=== PATIENT | female | born 1935 | race Caucasian/White ===

== ENCOUNTER 2018-11-04 11:00 | Observation (INO) ==
--- NOTE | 2018-11-04 11:12 | Emergency Department Note ---
ED Disposition Clinical Impression: Elevated WBC count, Physical debility, Frequent falls, Degenerative joint disease of knee, left Disposition: Admitted as Observation Condition on Discharge: Fair Referrals: Provider,Eliseo, [Referring] - Time of Disposition: 14:04 - Critical Care Critical Care Time: No Attestation: On , the high probability of a clinically significant, sudden or life threatening deterioration of the following system(s) required my full and direct attention, intervention and personal management. The time I documented below is in addition to time spent performing reported procedures but includes the following listed in this critical care notation. Medical Decision Making - Medical Records Medical records reviewed: Yes: I reviewed the patient's medical records. - Saud Inquiry Pt receiving controlled substance: No Saud was queried for this patient: No Vital Signs: 11/04/18 11:00 Temperature 98.4 F Temperature Source Oral Pulse Rate [Right Apical] 69 Respiratory Rate 18 Blood Pressure [Right Arm] 113/57 L Blood Pressure Mean [Right Arm] 75 02 Sat by Pulse Oximetry 98 Oxygen Delivery Method Room Air - Lab Data Lab results reviewed: Yes: I reviewed the patient's lab results. Lab Results 11/04/18 11:02: WBC 15.5 H, RBC 4.12 L, Hgb 12.5, Hct 37.4, MCV 90.9, MCH 30.4, MCHC 33.5, RDW 13.1, Plt Count 563 H, MPV 6.5 L, Neut % (Auto) 81.7 H, Lymph % (Auto) 9.3 L, [place] % (Auto) 7.9, Eos % (Auto) 0.6, Baso % (Auto) 0.5, Neut # (Auto) 12.6 H, Lymph # (Auto) 1.4, [place] # (Auto) 1.2 H, Eos # (Auto) 0.1, Baso # (Auto) 0.1, Total Counted 100, Neutrophils % (Manual) 77 H, Lymphocytes % (Manual) 3 L, Atypical Lymphs % 3.0, Monocytes % (Manual) 16 H, Eosinophils % (Manual) 1, Platelet Estimate Slight increase, RBC Morphology Normal, ESR 82 H 11/04/18 11:02: Sodium 132 L, Potassium 3.6, Chloride 98, Carbon Dioxide 25, Anion Gap 12.6, BUN 15, Creatinine 1.02, Estimated Creat Clear 56, Estimated GFR 52 L, Est GFR ( Amer) 62, Glucose 116 H, Calcium 9.8, Total Bilirubin 0.7, AST 13 L, ALT 28, Alkaline Phosphatase 123 H, C-Reactive Protein 14.9 H, Total Protein 7.8, Albumin 2.9 L, Globulin 4.9 H, Albumin/Globulin Ratio 0.6 L 11/04/18 11:02: D-Dimer 1670 H* 11/04/18 13:10: Urine Color Yellow, Urine Appearance Clear, Urine pH 6.0, Ur Specific [place] 1.010, Urine Protein Negative, Urine Glucose (UA) Negative, Urine Ketones Negative, Urine Blood 1+, Urine Nitrate Negative, Urine Bilirubin Negative, Urine Urobilinogen 0.2, Ur Leukocyte Esterase 1+ A, Urine RBC 3-5, Urine WBC 5-10, Ur Squamous Epith Cells 10-20, Urine Bacteria 2+, Urine Mucus 1+ Result diagrams: 11/04/18 11:02 11/04/18 11:02 Orders (Tests/Meds): ED MEDICATIONS Generic Name Dose Route Start Last Admin Trade Name Frejo PRN Reason Stop Dose Admin Sodium Chloride 2 ml 11/04/18 11:39 Saline Flush 10ml Syringe IV 12/04/18 11:38 NEEDED PRN to Dilute Lorazepam inj Discontinued Medications Generic Name Dose Route Start Last Admin Trade Name Freq PRN Reason Stop Dose Admin Ketorolac Tromethamine 30 mg 11/04/18 11:12 11/04/18 11:21 Toradol 30mg/Ml Vial IV 11/04/18 11:13 30 mg ONCE ONE Administration Lorazepam 0.5 mg 11/04/18 11:39 11/04/18 11:51 Ativan 2mg/Ml Vial IV 11/04/18 11:40 0.5 mg ONCE ONE Administration Methylprednisolone Sodium Succinate 125 mg 11/04/18 11:38 11/04/18 11:51 Solu-Medrol 125mg/2ml Vial IV 11/04/18 11:39 125 mg ONCE ONE Administration Morphine Sulfate 2 mg 11/04/18 11:39 11/04/18 11:51 Morphine 2mg/Ml Syringe IV 11/04/18 11:40 2 mg ONCE ONE Administration ORDERS Category Date Time Status Blood Culture Stat Micro 11/04/18 13:56 Ordered Urine Culture Stat Micro 11/04/18 13:10 Received - Physician Consults Physician Consulted: ines Reason -: Pt condition Comment/Response: difficult social situation, elevated wbc without known cause General Adult HPI - General Chief complaint: PAIN Stated complaint: pain Time Seen by Provider: 11/04/18 11:14 Mode of Arrival: EMS Source of Information: Patient, Spouse Limitations: No Limitations - History of Present Illness HPI narrative: very upset, anxious elderly female stating she's completely disabled from zeb ateral knee pain, left greater than right. No trauma. States she's got severe arthritis but has not had her knees x-rayed to her memory. No visit to pcp for this, but it's escalating over a two weeks period. Reports feeling febrile, no thermometer at home - Related Data Home Medications Medication Instructions Recorded Confirmed diltiazem ER 180 mg capsule,24 PO 90 Days #90 02/20/18 05/16/18 hr,extended release furosemide 20 mg tablet PO 30 Days #30 02/20/18 05/16/18 lisinopril 20 mg tablet PO 30 Days #60 02/20/18 05/16/18 warfarin 5 mg tablet PO 90 Days #90 02/20/18 05/16/18 coenzyme Q10 200 mg capsule 200 mg PO DAILY 05/16/18 05/16/18 sodium hyaluronate 20 mg capsule 75 mg PO cap 05/16/18 05/16/18 Allergies Allergy/AdvReac Type Severity Reaction Status Date / Time erythromycin base Allergy Mild Verified 11/04/18 13:22 [ERYTHROMYCIN BASE] Macrolide Antibiotics Allergy Mild Verified 11/04/18 13:22 [MACROLIDE ANTIBIOTICS] Penicillins Allergy Mild Verified 11/04/18 13:22 tetracycline [TETRACYCLINE] Allergy Mild Verified 11/04/18 13:[address] [facility] History - Hepatitis A Screen Attestation statement:: This patient has been screened for Hepatitis A risk factors. I have reviewed the patient's past medical history: Yes Medical History: Reports:: Hypertension, Internal Pacemaker Other Medical History: Reports: Arthritis, Cataracts, Sinus Problems Laterality Cases: Bilateral: Tonsillectomy Other Surgeries: Yes: Hysterectomy-Total, Pacemaker, Other Amputation: No Fractures: No Comment: nose surgery, tube in her back at the age of 3 - Social History Smoking Status: Never smoker Alcohol Intake: never Alcohol Intake Frequency:: other Family Hx:: Unable to obtain ROS Obtained: Yes All systems reviewed & no additional complaints - Constitutional Constitutional: Reports chills, Reports fever(s), Reports weakness - ENT Ears, Nose, Mouth, and Throat: Denies sinus pain, Denies throat swelling - Cardiovascular Cardiovascular: Denies chest pain, Denies chest pain at rest, Denies diaphoresis, Denies dyspnea - Respiratory Respiratory: No chest congestion, No cough, No dyspnea - Gastrointestinal Gastrointestingal: Denies: abdominal pain, diarrhea, vomiting - Genitourinary Female Genitourinary: Denies dysuria, Denies flank pain - Musculoskeletal Musculoskeletal: Reports muscle weakness, Reports muscle aches, Reports stiffness - Integumentary/Breasts Skin/Breast: Denies rash, Denies skin pain - Neurologic Neurologic: Denies focal weakness, Reports frequent falls, Reports weakness Physical Exam - General General appearance: alert, anxious, in distress, other (frustrated) - Head Head exam: atraumatic, normocephalic, normal inspection - ENT ENT exam: Present: normal exam, normal oropharynx, mucous membranes moist, TM's normal bilaterally, normal external ear exam - Respiratory Respiratory exam: Present: normal lung sounds bilaterally. Absent: respiratory distress - Cardiovascular Cardiovascular exam: Present: regular rate, normal rhythm. Absent: JVD - Abdominal Exam Abdominal exam: Present: soft, normal bowel sounds. Absent: distention, tenderness, guarding - Extremities Exam Extremities exam: Present: tenderness, pedal edema, joint swelling. Absent: normal inspection, full ROM - Neurological Exam Neurological exam: Present: alert, oriented X3, CN II-XII intact - Psychiatric Psychiatric exam: Present: normal affect, normal mood - Skin Skin exam: Present: warm, dry, intact, normal color, other (skin of left lower leg is warmer to touch than R) - Lymphatic Lymphatic Findings: no adenopathy
[2018-11-04 11:21] LABS: Basophils # 0.1 K/mm3 (0-0.2); Basophils % 0.5 % (0.1-2.0); Eosinophils # 0.1 K/mm3 (0.0-0.4); Eosinophils % 0.6 % (0.1-12.0); Hematocrit 37.4 % (37.0-47.0); Hemoglobin 12.5 g/dL (12.2-16.2); Lymphocytes # 1.4 K/mm3 (0.7-4.5); Lymphocytes % 9.3 % (10-50); Mean Corpuscular HGB Conc 33.5 g/dL (31.8-35.4); Mean Corpuscular Hemoglobin 30.4 pg (27.0-31.2); Mean Corpuscular Volume 90.9 fl (81-99); Mean Platelet Volume 6.5 fl (7.4-10.4); Monocytes # 1.2 K/mm3 (0.1-1.0); Monocytes % 7.9 % (1.7-9.3); Neutrophils # 12.6 K/mm3 (1.8-7.8); Neutrophils % 81.7 % (37.0-80.0); Platelet Count 563 K/mm3 (142-424); Red Blood Count 4.12 M/mm3 (4.20-5.40); Red Cell Distribution Width 13.1 % (11.5-17.5); White Blood Count 15.5 K/mm3 (4.8-10.8)
[2018-11-04 11:29] LABS: Albumin Level 2.9 gm/dL (3.4-5.0); Albumin/Globulin Ratio 0.6 (1.1-1.8); Anion Gap 12.6 mEq/L (5-15); Bilirubin,Total 0.7 mg/dL (0.2-1.0); Calcium 9.8 mg/dL (8.5-10.1); Globulin 4.9 gm/dl (1.3-3.2); Potassium 3.6 mmoL/L (3.5-5.1); Total Protein,Serum 7.8 gm/dL (6.4-8.2)
[2018-11-04 11:36] LABS: Eosinophils % 1 % (0-3); Lymphocytes % 3 % (10-50); Monocytes % 16 % (2-9); Neutrophils % 77 % (42-76); RBC Morphology Normal; Total Cells Counted 100
[2018-11-04 11:40] LABS: C-Reactive Protein 14.9 mg/L (0.0-0.9)
[2018-11-04 12:13] LABS: Erythrocyte Sedimentation Rate 82 mm/hr (0-30)
[2018-11-04 13:18] LABS: Microscopic, Urine URINE MICROSCOPIC (MICROSCOPIC)
[2018-11-04 13:20] LABS: Appearance,Urine CLEAR (Clear); Bilirubin,Urine Negative (Negative); Blood, Urine 1+ (Negative); Color,Urine YELLOW (Yellow); Glucose,Urine (UA) Negative (Negative); Ketones,Urine Negative (Negative); Leukocyte Esterase,Urine 1+ (Negative); Protein,Urine Negative (Negative); Urobilinogen,Urine 0.2 EU/dl (0.2)
[2018-11-04 13:31] LABS: Bacteria,Urine 2+ /lpf; Mucus,Urine 1+ /lpf
--- NOTE | 2018-11-04 13:52 | Non-Invasive Vascular Report ---
"Venous Exam Indications: 729.5 Pain in limb. 782.3 Edema. IMPRESSIONS 1. There is no evidence of significant Reflux. 2. No evidence of deep or superficial vein thrombosis involving the right lower extremity and left lower extremity Complete lower extremity venous duplex evaluation. Doppler flow study including spectral analysis, color and doherty scale imaging. Patient status: Emergency department. Tables: Venous flow and imaging: + + + + + |Location |Overall |Flow properties |Comments | + + + + + |Right common femoral|Patent |Normal phasicity; | | | | |spontaneous; normal| | | | |augmentation; | | | | |compressible | | + + + + + |Right saphenofemoral|Patent |Compressible | | |junction | | | | + + + + + |Right profunda |Patent |Compressible | | |femoral | | | | + + + + + |Right femoral |Patent |Normal phasicity; | | | | |spontaneous; normal| | | | |augmentation; | | | | |compressible; no | | | | |reflux | | + + + + + |Right greater |Patent |Normal phasicity; | | |saphenous | |spontaneous; normal| | | | |augmentation; | | | | |compressible | | + + + + + |Right popliteal |Patent |Normal phasicity; | | | | |spontaneous; normal| | | | |augmentation; | | | | |compressible | | + + + + + |Right posterior |Difficult | |Difficult to | |tibial |study | |image. | + + + + + |Right peroneal |Difficult | |Difficult to | | |study | |image. | + + + + + |Right gastrocnemius |Not visualized| | | + + + + + |Right soleal |Not visualized| | | + + + + + |Left common femoral |Patent |Normal phasicity; | | | | |spontaneous; normal| | | | |augmentation; | | | | |compressible | | + + + + + |Left saphenofemoral |Patent |Compressible | | |junction | | | | + + + + + |Left profunda |Patent |Compressible | | |femoral | | | | + + + + + |Left femoral |Patent |Normal phasicity; | | | | |spontaneous; normal| | | | |augmentation; | | | | |compressible | | + + + + + |Left greater |Patent |Normal phasicity; | | |saphenous | |spontaneous; normal| | | | |augmentation; | | | | |compressible | | + + + + + |Left popliteal |Patent |Normal phasicity; | | | | |spontaneous; normal| | | | |augmentation; | | | | |compressible | | + + + + + |Left posterior |Patent |Compressible | | |tibial | | | | + + + + + |Left peroneal |Patent |Compressible | | + + + + + |Left gastrocnemius |Patent |Compressible | | + + + + + |Left soleal |Patent |Compressible | | + + + + + (Report amended ) Electronically signed by: Elan Hernandez [id number]"
--- NOTE | 2018-11-04 14:45 | History & Physical Report ---
*Chief complaint: fever; knee pain *History of present illness: Ms. Coello is an 82-year-old female with a history of atrial fibrillation, hypertension, peripheral vascular disease, leg edema, hypothyroidism, and osteoarthritis who has had a progressive decline over the past 2 weeks. She states that she has had a fever (subjective ) and feels that she has had a sinus infection. She is gradually had difficulty with ambulation and now she states that she cannot walk although she is able to get up and stand and walk for short distances. She did have a fall 2 weeks ago but does not recall any specific injury. She did not sleep last night due to the pain Patient was evaluated in the emergency room. She was given morphine, Ketarolac, Solu-Medrol, and lorazepam. White blood cell count was found to be elevated. She was admitted to observation for further evaluation and treatment [facility] History Medical History: Reports:: Atrial Fibrillation, Hypertension, Internal Pacemaker, Peripheral Vascular Disease Denies:: Diabetes Mellitus Type 2, Gastroesophageal Reflux Disease(GERD) *Have you ever received a pneumonia vaccine?: No *Have you received a flu vaccine this season?: No Other Medical History: Reports: Arthritis, Cataracts, Sinus Problems Laterality Cases: Bilateral: Tonsillectomy Other Surgeries: Yes: Hysterectomy-Total, Pacemaker, Other Amputation: No Fractures: No - *Social History Smoking Status: Never smoker Alcohol Intake: never Alcohol Intake Frequency:: other *Occupational Status:: employed *Travel in the last 8 weeks: None - Psychiatric History Expresses thoughts of harming self/others: None Suicide Plan Description: No Plan Family Hx:: Unable to obtain Review of Systems - Constitutional Reports fatigue, Reports fever(s), Reports headache(s), Reports lack of energy, Denies body ache(s) - ENT Reports headache(s), Denies ear pain, Denies nasal congestion Comments: feels like she has a sinus infection - *Cardiovascular Reports leg swelling, Denies chest pain, Denies shortness of breath - *Respiratory Denies cough, Denies shortness of breath - *Gastrointestinal Denies abdominal pain, Denies change in bowel habits, Denies change in stools, Denies constipation, Denies vomiting blood, Denies loose stools, Denies black, tarry stools, Denies nausea, Denies vomiting - *Genitourinary Denies difficulty urinating, Denies painful urination, Denies blood in urine - *Musculoskeletal Reports abnormal walking, Reports joint pain, Reports deformity, Reports joint swelling (bilateral knees), Reports muscle weakness Comments: has only been able to walk short distances - *Neurologic Reports frequent falls, Reports weakness, Denies localized weakness Meds Home Medications Medication Instructions Recorded Confirmed Type furosemide 20 mg tablet PO 30 Days #30 02/20/18 05/16/18 History lisinopril 20 mg tablet PO 30 Days #60 02/20/18 05/16/18 History warfarin 5 mg tablet PO 90 Days #90 02/20/18 05/16/18 History coenzyme Q10 200 mg capsule 200 mg PO DAILY 05/16/18 05/16/18 History Allergies Allergy/AdvReac Type Severity Reaction Status Date / Time erythromycin base Allergy Mild Verified 11/04/18 13:22 [ERYTHROMYCIN BASE] Macrolide Antibiotics Allergy Mild Verified 11/04/18 13:22 [MACROLIDE ANTIBIOTICS] Penicillins Allergy Mild Verified 11/04/18 13:22 tetracycline [TETRACYCLINE] Allergy Mild Verified 11/04/18 13:22 Exam Vital signs and Labs for Last 24 Hours: Temp Pulse Resp BP Pulse Ox 98.4 F 69 18 113/57 L 98 11/04/18 11:00 11/04/18 11:00 11/04/18 11:00 11/04/18 11:00 11/04/18 11:00 Laboratory Results - last 24 hr 11/04/18 11:02: WBC 15.5 H, RBC 4.12 L, Hgb 12.5, Hct 37.4, MCV 90.9, MCH 30.4, MCHC 33.5, RDW 13.1, Plt Count 563 H, MPV 6.5 L, Neut % (Auto) 81.7 H, Lymph % (Auto) 9.3 L, [place] % (Auto) 7.9, Eos % (Auto) 0.6, Baso % (Auto) 0.5, Neut # (Auto) 12.6 H, Lymph # (Auto) 1.4, [place] # (Auto) 1.2 H, Eos # (Auto) 0.1, Baso # (Auto) 0.1, Total Counted 100, Neutrophils % (Manual) 77 H, Lymphocytes % (Manual) 3 L, Atypical Lymphs % 3.0, Monocytes % (Manual) 16 H, Eosinophils % (Manual) 1, Platelet Estimate Slight increase, RBC Morphology Normal, ESR 82 H 11/04/18 11:02: Sodium 132 L, Potassium 3.6, Chloride 98, Carbon Dioxide 25, Anion Gap 12.6, BUN 15, Creatinine 1.02, Estimated Creat Clear 56, Estimated GFR 52 L, Est GFR ( Amer) 62, Glucose 116 H, Calcium 9.8, Total Bilirubin 0.7, AST 13 L, ALT 28, Alkaline Phosphatase 123 H, C-Reactive Protein 14.9 H, Total Protein 7.8, Albumin 2.9 L, Globulin 4.9 H, Albumin/Globulin Ratio 0.6 L 11/04/18 11:02: D-Dimer 1670 H* 11/04/18 13:10: Urine Color Yellow, Urine Appearance Clear, Urine pH 6.0, Ur Specific [place] 1.010, Urine Protein Negative, Urine Glucose (UA) Negative, Urine Ketones Negative, Urine Blood 1+, Urine Nitrate Negative, Urine Bilirubin Negative, Urine Urobilinogen 0.2, Ur Leukocyte Esterase 1+ A, Urine RBC 3-5, Urine WBC 5-10, Ur Squamous Epith Cells 10-20, Urine Bacteria 2+, Urine Mucus 1+ I & O for Last 24 hours: Intake & Output 11/02/18 11/03/18 11/04/18 11/05/18 11:59 11:59 11:59 11:59 Weight 190 lb Radiology Reports for the Last 24 Hours: Chest x-ray 11/04/2018 IMPRESSION: Left lower lobe atelectasis or infiltrate with cardiomegaly Left knee x-ray 11/04/2018 IMPRESSION: Severe osteoarthritis of the left knee Right knee x-ray 11/04/2018 IMPRESSION: Severe osteoarthritis of the right knee as described above Venous Doppler studies of bilateral lower extremities 11/04/2018 1. There is no evidence of significant Reflux. 2. No evidence of deep or superficial vein thrombosis involving the right lower extremity and left lower extremity - Constitutional no acute distress, obese - *Routine HEENT Exam Head: Present: normocephalic, atraumatic Eye: Present: PERRL, exophthalmos. Absent: conjunctival icterus, scleral injection ENT: Present: mucous membranes moist, oropharynx clear, TM's clear bilaterally - *Routine Neck Exam Present: supple, full ROM, trachea midline. Absent: carotid bruit, lymphadenopathy, thyromegaly, tenderness - *Routine Respiratory Exam Comments: Audible crackles on the right posteriorly. Left lower base crackles. - *Routine Cardiovascular Exam Present: RRR - *Routine Abdominal Exam Present: soft, normoactive bowel sounds. Absent: tenderness, guarding Comments: Obese - *Routine Extremities Exam Present: edema (2-3+; left knee and leg larger than the right). Absent: tenderness Comments: osteoarthritic changes to bilateral knees - *Routine Neurological Exam Present: alert, oriented X3, normal speech. Absent: hearing grossly intact (Hearing deficit) Assessment and Plan (1) Degenerative joint disease of knee, left Current visit: Yes Status: Acute Category: Medical Code(s): M17.12 - U nilateral primary osteoarthritis, left knee (2) Degenerative joint disease of knee, right Current visit: Yes Status: Acute Category: Medical Code(s): M17.11 - Unilateral primary osteoarthritis, right knee (3) HTN (hypertension) Current visit: Yes Status: Chronic Category: Medical Code(s): I10 - Essential (primary) hypertension (4) History of atrial fibrillation Current visit: Yes Status: Chronic Category: Medical Code(s): Z86.79 - Personal history of other diseases of the circulatory system (5) Elevated WBC count Current visit: Yes Status: Acute Category: Medical Code(s): D72.829 - Elevated white blood cell count, unspecified (6) Frequent falls Current visit: Yes Status: Acute Category: Medical Code(s): R29.6 - Repeated falls (7) Physical debility Current visit: Yes Status: Chronic Category: Medical Code(s): R53.81 - Other malaise (8) Leg edema Current visit: Yes Status: Acute Category: Medical Code(s): R60.0 - Localized edema - Assessment and plan all Dx Assessment and Plan for all problems:: care management consult; pain management; IV Lasix; saline lock ; PO steriods; Rocephin for leukocytosis; repeat labs in AM; TSH as well
[2018-11-04 17:01] LABS: INR 4.95 (0.9-1.1); Prothrombin Time 48.7 seconds (9.4-11.8)
[2018-11-05 07:09] LABS: Basophils % 0.1 % (0.1-2.0); Eosinophils # 0.1 K/mm3 (0.0-0.4); Eosinophils % 0.5 % (0.1-12.0); Hemoglobin 11.8 g/dL (12.2-16.2); Lymphocytes # 0.7 K/mm3 (0.7-4.5); Lymphocytes % 4.8 % (10-50); Mean Corpuscular HGB Conc 33.6 g/dL (31.8-35.4); Mean Corpuscular Hemoglobin 30.5 pg (27.0-31.2); Mean Corpuscular Volume 90.6 fl (81-99); Mean Platelet Volume 7.2 fl (7.4-10.4); Monocytes # 0.7 K/mm3 (0.1-1.0); Monocytes % 5.1 % (1.7-9.3); Neutrophils # 12.5 K/mm3 (1.8-7.8); Neutrophils % 89.6 % (37.0-80.0); Platelet Count 442 K/mm3 (142-424); Red Blood Count 3.86 M/mm3 (4.20-5.40); Red Cell Distribution Width 13.1 % (11.5-17.5); White Blood Count 13.9 K/mm3 (4.8-10.8)
--- NOTE | 2018-11-05 07:18 | Pharmacy Consult Notes ---
[facility] Pharmacy VTE Monitoring - Patient Demographics Admission date: 11/04/18 Report Date: 11/05/18 Time: 07:18 Allergies/Adverse Reactions: Patient Allergies erythromycin base [ERYTHROMYCIN BASE] Allergy (Mild, Verified 11/04/18 13:22) Macrolide Antibiotics [MACROLIDE ANTIBIOTICS] Allergy (Mild, Verified 11/04/18 13:22) Penicillins Allergy (Mild, Verified 11/04/18 13:22) tetracycline [TETRACYCLINE] Allergy (Mild, Verified 11/04/18 13:22) Height: 1.52 m Weight: 78.5 kg Patient Problems: Current Active Problems (Updated 11/04/18 @ 16:20 by Ana Ortiz APRN) Elevated WBC count (Acute) Physical debility (Chronic) Frequent falls (Acute) Degenerative joint disease of knee, left (Acute) Degenerative joint disease of knee, right (Acute) HTN (hypertension) (Chronic) History of atrial fibrillation (Chronic) Leg edema (Acute) - VTE Risk Labs: VTE Related Lab Results Hgb 11.8 g/dL (12.2-16.2) L 11/05/18 06:32 Hct 35.0 % (37.0-47.0) L 11/05/18 06:32 Plt Count 442 K/mm3 (142-424) H 11/05/18 06:32 PT 48.7 seconds (9.4-11.8) H 11/04/18 16:25 INR 4.95 (0.9-1.1) H 11/04/18 16:25 BUN 15 mg/dL (7-18) 11/04/18 11:02 Creatinine 1.02 mg/dL (0.55-1.02) 11/04/18 11:02 Estimated Creat Clear 56 mL/min (50-200) 11/04/18 11:02 Was VTE Risk Assessment Performed: Yes VTE Score: 3 VTE Risk Level: Low Risk Clinical Trial Participant: No - Prophylaxis VTE Prophylaxis Ordered?: Yes Types of VTE Prophylaxis: TEDS Knee High
[2018-11-05 07:19] LABS: Anion Gap 11.7 mEq/L (5-15); Calcium 9.9 mg/dL (8.5-10.1); Potassium 3.7 mmoL/L (3.5-5.1)
--- NOTE | 2018-11-05 08:57 | Progress Note ---
Internal Medicine - PN: Subj *Date: 11/05/18 *Time: 08:51 Interval history: Patient states she feels 100% better. She has had a bath which made her feel much better. She denies shortness of breath, cough, nausea, and pain. She states her knees are better today. She ate breakfast without problems. Exam Vital signs and Labs for Last 24 Hours: Temp Pulse Resp BP Pulse Ox 97.2 F L 71 17 107/71 L 100 11/05/18 08:00 11/05/18 08:00 11/05/18 08:00 11/05/18 08:00 11/05/18 08:00 Laboratory Results - last 24 hr 11/04/18 11:02: WBC 15.5 H, RBC 4.12 L, Hgb 12.5, Hct 37.4, MCV 90.9, MCH 30.4, MCHC 33.5, RDW 13.1, Plt Count 563 H, MPV 6.5 L, Neut % (Auto) 81.7 H, Lymph % (Auto) 9.3 L, Atkinson % (Auto) 7.9, Eos % (Auto) 0.6, Baso % (Auto) 0.5, Neut # (Auto) 12.6 H, Lymph # (Auto) 1.4, Atkinson # (Auto) 1.2 H, Eos # (Auto) 0.1, Baso # (Auto) 0.1, Total Counted 100, Neutrophils % (Manual) 77 H, Lymphocytes % (Manual) 3 L, Atypical Lymphs % 3.0, Monocytes % (Manual) 16 H, Eosinophils % (Manual) 1, Platelet Estimate Slight increase, RBC Morphology Normal, ESR 82 H 11/04/18 11:02: Sodium 132 L, Potassium 3.6, Chloride 98, Carbon Dioxide 25, Anion Gap 12.6, BUN 15, Creatinine 1.02, Estimated Creat Clear 56, Estimated GFR 52 L, Est GFR ( Amer) 62, Glucose 116 H, Calcium 9.8, Total Bilirubin 0.7, AST 13 L, ALT 28, Alkaline Phosphatase 123 H, C-Reactive Protein 14.9 H, Total Protein 7.8, Albumin 2.9 L, Globulin 4.9 H, Albumin/Globulin Ratio 0.6 L 11/04/18 11:02: D-Dimer 1670 H* 11/04/18 11:02: TSH 1.86 11/04/18 11:02: Uric Acid 6.5 11/04/18 13:10: Urine Color Yellow, Urine Appearance Clear, Urine pH 6.0, Ur Specific [place] 1.010, Urine Protein Negative, Urine Glucose (UA) Negative, Urine Ketones Negative, Urine Blood 1+, Urine Nitrate Negative, Urine Bilirubin Negative, Urine Urobilinogen 0.2, Ur Leukocyte Esterase 1+ A, Urine RBC 3-5, Urine WBC 5-10, Ur Squamous Epith Cells 10-20, Urine Bacteria 2+, Urine Mucus 1+ 11/04/18 16:25: PT 48.7 H, INR 4.95 H 11/05/18 06:32: WBC 13.9 H, RBC 3.86 L, Hgb 11.8 L, Hct 35.0 L, MCV 90.6, MCH 30.5, MCHC 33.6, RDW 13.1, Plt Count 442 H, MPV 7.2 L, Neut % (Auto) 89.6 H, Lymph % (Auto) 4.8 L, Atkinson % (Auto) 5.1, Eos % (Auto) 0.5, Baso % (Auto) 0.1, Neut # (Auto) 12.5 H, Lymph # (Auto) 0.7, Atkinson # (Auto) 0.7, Eos # (Auto) 0.1, Baso # (Auto) 0.0 11/05/18 06:32: Sodium 134 L, Potassium 3.7, Chloride 102, Carbon Dioxide 24, An ion Gap 11.7, BUN 20 H D, Creatinine 0.88, Estimated Creat Clear 52, Estimated GFR 61, Est GFR ( Amer) 74, Glucose 189 H D, Calcium 9.9 I & O for Last 24 hours: Intake & Output 11/02/18 11/03/18 11/04/18 11/05/18 11:59 11:59 11:59 11:59 Intake Total 600 / 600 Output Total 550 / 550 Balance 50 / 50 Weight 190 lb 173 lb 1 oz - Constitutional no acute distress - *Routine Respiratory Exam Comments: Very few faint bibasilar crackles - *Routine Cardiovascular Exam Present: RRR - *Routine Abdominal Exam Present: soft, normoactive bowel sounds. Absent: tenderness - *Routine Extremities Exam Present: edema (Much improved). Absent: calf tenderness - *Routine Neurological Exam Present: alert, oriented X3 Assessment and Plan (1) Degenerative joint disease of knee, left Current visit: Yes Status: Acute Category: Medical Code(s): M17.12 - Unilateral primary osteoarthritis, left knee (2) Degenerative joint disease of knee, right Current visit: Yes Status: Acute Category: Medical Code(s): M17.11 - Unilateral primary osteoarthritis, right knee (3) HTN (hypertension) Current visit: Yes Status: Chronic Category: Medical Code(s): I10 - Essential (primary) hypertension (4) History of atrial fibrillation Current visit: Yes Status: Chronic Category: Medical Code(s): Z86.79 - Personal history of other diseases of the circulatory system (5) Elevated WBC count Current visit: Yes Status: Acute Category: Medical Code(s): D72.829 - Elevated white blood cell count, unspecified (6) Frequent falls Current visit: Yes Status: Acute Category: Medical Code(s): R29.6 - Repeated falls (7) Physical debility Current visit: Yes Status: Chronic Category: Medical Code(s): R53.81 - Other malaise (8) Leg edema Current visit: Yes Status: Acute Category: Medical Code(s): R60.0 - Localized edema - Assessment and plan all Dx Assessment and Plan for all problems:: We will decrease prednisone to 20 mg daily. Will increase Lasix to 40 mg p.o. daily. Physical therapy has been consulted. Care management note reviewed.
[2018-11-05 09:43] LABS: Lymphocytes % 3 % (10-50); Monocytes % 4 % (2-9); Neutrophils % 89 % (42-76); Total Cells Counted 100
[2018-11-05 09:44] LABS: RBC Morphology Normal
[2018-11-06 08:16] LABS: Basophils % 0.1 % (0.1-2.0); Eosinophils # 0.1 K/mm3 (0.0-0.4); Eosinophils % 0.3 % (0.1-12.0); Hematocrit 36.7 % (37.0-47.0); Hemoglobin 12.2 g/dL (12.2-16.2); Lymphocytes # 1.3 K/mm3 (0.7-4.5); Lymphocytes % 6.7 % (10-50); Mean Corpuscular HGB Conc 33.1 g/dL (31.8-35.4); Mean Corpuscular Hemoglobin 30.4 pg (27.0-31.2); Mean Corpuscular Volume 91.9 fl (81-99); Mean Platelet Volume 6.7 fl (7.4-10.4); Monocytes # 1.1 K/mm3 (0.1-1.0); Monocytes % 5.3 % (1.7-9.3); Neutrophils # 17.3 K/mm3 (1.8-7.8); Neutrophils % 87.4 % (37.0-80.0); Platelet Count 493 K/mm3 (142-424); White Blood Count 19.8 K/mm3 (4.8-10.8)
[2018-11-06 08:18] LABS: Anion Gap 9.6 mEq/L (5-15); Calcium 9.9 mg/dL (8.5-10.1); Potassium 3.6 mmoL/L (3.5-5.1)
--- NOTE | 2018-11-06 08:39 | Progress Note ---
Internal Medicine - PN: Subj *Date: 11/06/18 *Time: 08:35 Interval history: Did not sleep as well. She states her knees are better. She worked with physical therapy yesterday. She was able to get up to the bedside commode with assistance. She feels this went well. She is eating and drinking well. She is voiding QS. Bowels have not moved. She denies chest pain, shortness of breath, cough, and stomach problems. Exam Vital signs and Labs for Last 24 Hours: Temp Pulse Resp BP Pulse Ox 97.5 F L 70 20 170/79 H 94 L 11/06/18 04:00 11/06/18 04:00 11/06/18 04:00 11/06/18 04:00 11/06/18 04:00 Laboratory Results - last 24 hr 11/05/18 06:32: Total Counted 100, Neutrophils % (Manual) 89 H, Band Neutrophils % 4.0, Lymphocytes % (Manual) 3 L, Monocytes % (Manual) 4, Platelet Estimate Slight increase, RBC Morphology Normal 11/06/18 07:39: WBC 19.8 H D, RBC 4.00 L, Hgb 12.2, Hct 36.7 L, MCV 91.9, MCH 30.4, MCHC 33.1, RDW 13.0, Plt Count 493 H, MPV 6.7 L, Neut % (Auto) 87.4 H, Lymph % (Auto) 6.7 L, Wallace % (Auto) 5.3, Eos % (Auto) 0.3, Baso % (Auto) 0.1, Neut # (Auto) 17.3 H, Lymph # (Auto) 1.3, Wallace # (Auto) 1.1 H, Eos # (Auto) 0.1, Baso # (Auto) 0.0 11/06/18 07:39: Sodium 137, Potassium 3.6, Chloride 103, Carbon Dioxide 28, Anion Gap 9.6, BUN 22 H, Creatinine 0.82, Estimated Creat Clear 52, Estimated GFR 66, Est GFR ( Amer) 80, Glucose 106, Calcium 9.9 I & O for Last 24 hours: Intake & Output 11/03/18 11/04/18 11/05/18 11/06/18 11:59 11:59 11:59 11:59 Intake Total 600 / 600 730 / 730 Output Total 550 / 550 2300 / 2300 Balance 50 / 50 -1570 / -1570 Weight 190 lb 173 lb 1 oz 173 lb 2 oz Microbiology Reports for the Last 24 Hours: Microbiology 11/04/18 13:10 Urine,Clean Catch Urine Culture - Final Multiple organisms, suggests contamination. - Constitutional no acute distress - *Routine Respiratory Exam Comments: Right basilar crackles - *Routine Cardiovascular Exam Present: RRR - *Routine Abdominal Exam Present: soft, normoactive bowel sounds. Absent: tenderness - *Routine Extremities Exam Present: edema (Bilateral leg edema has improved. Knee is less edematous) - *Routine Neurological Exam Present: alert, oriented X3 Assessment and Plan (1) Degenerative joint disease of knee, left Current visit: Yes Status: Acute Category: Medical Code(s): M17.12 - Unilateral primary osteoarthritis, left knee (2) Degenerative joint disease of knee, right Current visit: Yes Status: Acute Category: Medical Code(s): M17.11 - Unilateral primary osteoarthritis, right knee (3) HTN (hypertension) Current visit: Yes Status: Chronic Category: Medical Code(s): I10 - Essential (primary) hypertension (4) History of atrial fibrillation Current visit: Yes Status: Chronic Category: Medical Code(s): Z86.79 - Personal history of other diseases of the circulatory system (5) Elevated WBC count Current visit: Yes Status: Acute Category: Medical Code(s): D72.829 - Elevated white blood cell count, unspecified (6) Frequent falls Current visit: Yes Status: Acute Category: Medical Code(s): R29.6 - Repeated falls (7) Physical debility Current visit: Yes Status: Chronic Category: Medical Code(s): R53.81 - Other malaise (8) Leg edema Current visit: Yes Status: Acute Category: Medical Code(s): R60.0 - Localized edema - Assessment and plan all Dx Assessment and Plan for all problems:: We will repeat chest x-ray today. Continue with physical therapy. She plans on healthy team as well. Elevated white blood cell count possibly due to steroids.
[2018-11-06 09:21] LABS: Lymphocytes % 12 % (10-50); Monocytes % 4 % (2-9); Neutrophils % 84 % (42-76); RBC Morphology Normal; Total Cells Counted 100
--- NOTE | 2018-11-08 09:41 | Discharge Summary ---
General - General Admission date:: 11/04/18 Discharge date: 11/06/18 HPI HPI: Ms. Coello was an 82-year-old female with a history of atrial fibrillation, hypertension, peripheral vascular disease, leg edema, hypothyroidism, and osteoarthritis who had had a progressive decline over the prior 2 weeks. She stated that she had a fever (subjective ) and felt that she had a sinus infection. She was gradually having difficulty with ambulation and stated that she could not walk although she was able to get up and stand and walk for short distances. She did have a fall 2 weeks prior but did not recall any specific injury. She presented to the [facility] after not sleeping the night before due to pain. Patient was evaluated in the emergency room. She was given morphine, Ketarolac, Solu-Medrol, and lorazepam. White blood cell count was found to be elevated. Bilateral knee xrays showed severe osteoarthritis. CXR showed LLL atelectasis or infiltrate with cardiomegaly. She was admitted to observation for further evaluation and treatment. Hospital Course Hospital Course: By the morning following admission, the patient was feeling much better with decreased pain and no complaints. Her prednisone was decreased and lasix was increased. Physical therapy was consulted. By the morning of 11/06/18, the patient continued to feel well. She was able to get up to the bedside commode with assistance. Repeat CXR showed improvement in LLL infiltrate. She was felt to be stable for discharge home with Home Health. Objective Vital signs: Temp Pulse Resp BP Pulse Ox 98.0 F 69 20 148/77 H 94 L 11/06/18 08:00 11/06/18 08:00 11/06/18 08:00 11/06/18 08:00 11/06/18 08:00 Results Labs on day of discharge: Labs from last 24 hours 11/04/18 16:30 LULU Screen Negative Preliminary micro results at discharge 11/04/18 14:40 Blood Culture - Preliminary Blood NO GROWTH AFTER 48 HOURS 11/04/18 14:47 Blood Culture - Preliminary Blood NO GROWTH AFTER 48 HOURS DS: Diagnosis - Discharge Diagnosis (1) Degenerative joint disease of knee, left Status: Acute (2) Degenerative joint disease of knee, right Status: Acute (3) HTN (hypertension) Status: Chronic (4) History of atrial fibrillation Status: Chronic (5) Elevated WBC count Status: Acute (6) Frequent falls Status: Acute (7) Physical debility Status: Chronic (8) Leg edema Status: Acute Discharge Plan - Patient Discharge Instructions Patient Instructions: DI for Leukocytosis - Follow up Plan Disposition: Home, Self-Long Term Medications: Home Medications Medication Instructions Recorded Confirmed Type lisinopril 20 mg tablet 20 mg PO BID 30 Days #60 02/20/18 11/04/18 History warfarin 5 mg tablet 5 mg PO DAILY 90 Days #90 02/20/18 11/04/18 History coenzyme Q10 200 mg capsule 200 mg PO DAILY 05/16/18 11/04/18 History Fluticasone Propionate [Flonase 2 spr NS DAILY 11/05/18 11/05/18 History 50mcg nasal spray 16gm] L.acidoph,Paracasei, B.lactis 1 each PO DIRECTED 11/05/18 11/05/18 History [Probiotic] Sennosides [Senna Laxative] 17.2 mg PO DIRECTED 11/05/18 11/05/18 History Cefdinir [Omnicef 300mg Capsule] 300 mg PO BID #14 cap 11/06/18 Rx Furosemide [Lasix 40mg tablet] 40 mg PO DAILY #30 tab 11/06/18 Rx dilTIAZem HCl [Cardizem 180mg ER 180 mg PO DAILY capsule.er 11/06/18 Rx Cap] predniSONE [Deltasone 10mg tablet] 10 mg PO DAILY 30 Days #30 tab 11/06/18 Rx Prescriptions/Medication Reconciliation: New Furosemide [Lasix 40mg tablet] 40 mg PO DAILY #30 tab Cefdinir [Omnicef 300mg Capsule] 300 mg PO BID #14 cap dilTIAZem HCl [Cardizem 180mg ER Cap] 180 mg PO DAILY capsule.er predniSONE [Deltasone 10mg tablet] 10 mg PO DAILY 30 Days #30 tab Continued lisinopril 20 mg tablet 20 mg PO BID 30 Days #60 warfarin 5 mg tablet 5 mg PO DAILY 90 Days #90 coenzyme Q10 200 mg capsule 200 mg PO DAILY L.acidoph,Paracasei, B.lactis [Probiotic] 1 each PO DIRECTED Sennosides [Senna Laxative] 17.2 mg PO DIRECTED Fluticasone Propionate [Flonase 50mcg nasal spray 16gm] 2 spr NS DAILY Discontinued furosemide 20 mg tablet 20 mg PO DAILY 30 Days #30
== END 2018-11-06 16:26 | disposition home or self-care (01) ==
LOC: ER 11:00 → 2ND 11:00
PROVIDERS: ADMIT Family Medicine; ATTEND Family Medicine
DX: Z88.0 Allergy status to penicillin; Z79.899 Other long term (current) drug therapy; Z86.79 Personal history of other diseases of the circulatory system; M25.562 Pain in left knee; M19.90 Unspecified osteoarthritis, unspecified site; D72.829 Elevated white blood cell count, unspecified; M25.561 Pain in right knee; Z95.0 Presence of cardiac pacemaker; M17.0 Bilateral primary osteoarthritis of knee; E03.9 Hypothyroidism, unspecified; R54 Age-related physical debility; Z91.81 History of falling; Z79.01 Long term (current) use of anticoagulants; R60.0 Localized edema; Z88.1 Allergy status to other antibiotic agents; I10 Essential (primary) hypertension
CPT/HCPCS: 36415; 71010; 71020; 71045; 71046; 73560; 80048; 80053; 81001; 84145; 84443; 84550; 85007; 85025; 85378; 85610; 85651; 86038; 86140; 87040; 87086; 93970; 96374; 96375; 97110; 97161; 97530; 99284; G0378

== ENCOUNTER → 2018-11-13 14:41 | Outpatient (CLI) | payer MEDICARE, OTHER, SELFPAY ==
--- NOTE | 2018-11-13 14:52 | XR_ITS ---
XR chest 2V HISTORY: ITS.REASON: LOW BACK PAIN,PNEUMONIA ORDERING PHYSICIAN: FACUNDO Rasmussen PATIENT AGE: 83 years COMPARISON: 11/06/2018 FINDINGS: Mild cardiomegaly without failure. RV pacemaker is present from left subclavian approach. No lobar consolidation or collapse is evident. There is minimal fibrotic change in the left lung base with no obvious lobar consolidation or collapse. Chronic changes are present in the lower lobes. Degenerative changes noted in the shoulders. IMPRESSION: Cardiomegaly with chronic changes, no acute finding
--- NOTE | 2018-11-13 14:52 | XR_ITS ---
EXAM: XR lumbar spine 2-3V HISTORY: ITS.REASON: LOW BACK PAIN ORDERING PHYSICIAN: FACUNDO Rasmussen PATIENT AGE: 83 years COMPARISON: 03/29/2017 FINDINGS: There is mild lumbar scoliosis convex left. 5 mm anterolisthesis L4 on L5. There is wedging of the L2 vertebral body which is increased compared to the previous study with loss of height anteriorly of approximately 30%. Mild kyphosis noted at L1-L2. There is generalized vascular calcification. Degenerative disc disease T12-L1 and L1-L2. IMPRESSION: 1. Scoliosis with increased wedging of L2 compared to 03/29/2017. 2. Degenerative changes
== END ==
PROVIDERS: PCP Family Medicine; Visit Provider Physician Assistant
DX: M54.5 Low back pain (principal); J18.1 Lobar pneumonia, unspecified organism
CPT/HCPCS: 71046; 72100

== ENCOUNTER → 2020-11-11 14:43 | Outpatient (CLI) | payer MEDICARE, OTHER, SELFPAY ==
--- NOTE | 2020-11-11 14:44 | CA_ITS ---
APPROVED REPORT EXAM: Comprehensive 2D, Doppler, and color-flow Echocardiogram Profile Saw Operator: Agnes Fisher RVT Ht: 5 ft 2 in Wt: 184lbs BSA: 1.85 BP: 139/76 mmHg Indications: SOA,PACER,A-FIB,ABN EKG,HTN,EDEMA TDS-PT SCANNED UPRIGHT IN W/C UNABLE TO LAY DOWN,BEST EXAM POSSIBLE GIVEN PT CONDITION 2D Dimensions LVOT 2.89 cm (M/F) 1.5-2.5 LA Volume 110.50 mL LA Volume Index 60.05 mL/m2 (M/F) 16-34 M-Mode Dimensions RVDd 1.78 cm (0.9-2.6) LA Diam 3.36 cm (1.9-4.0) LVDd 3.99 cm (3.5-5.7) Ao Diam 3.05 cm (2.0-3.7) LVDs 2.67 cm (3.5-5.7) IVSd 0.72 cm (0.6-1.1) PWd 0.98 cm (0.6-1.1) EF (Teich) 62.20% FS 33.10% EDV (Teich) 69.60 mL ESV (Teich) 26.30 mL Aortic Valve AO Peak GR. 2.70 mmHg Pulmonary Valve PV Peak Velocity 57.00 (50-150 cm/s) Left Ventricle Left atrium is mildly enlarged, left ventricle is normal size, mild concentric left ventricular hypertrophy, visually estimated ejection fraction 55% with no regional wall motion abnormality. Diastolic parameters are inconclusive. Right Ventricle Right-sided chambers are not well visualized, the pacemaker lead is not well visualized. Aortic Valve Aortic valve is minimally thickened and fibrosed, there is no aortic stenosis or aortic insufficiency. Mitral Valve Mitral valve leaflets are minimally thickened, there is mild mitral regurgitation. Tricuspid Valve Tricuspid valve is poorly visualized, there is no significant tricuspid regurgitation. Pulmonic Valve Pulmonic valve is poorly visualized. Great Vessels Aortic root is normal size. Pericardium No significant pericardial effusion noted. Conclusion 1. Technically difficult study because of the patient factors and poor acoustic windows. 2. Mildly enlarged left atrium, normal left ventricular size, mild concentric left ventricular hypertrophy, visually estimated ejection fraction 55% with no regional wall motion abnormality, diastolic parameters are inconclusive. 3. Thickened and calcified aortic valve without aortic stenosis or aortic insufficiency. 4. Mild mitral regurgitation. 5. No significant pericardial effusion noted. Electronically signed by : Tomas Hernandez, 11/11/2020 15:54:58
== END ==
PROVIDERS: PCP Family Medicine; Visit Provider Internal Medicine Cardiovascular Disease
DX: I10 Essential (primary) hypertension (principal); I48.91 Unspecified atrial fibrillation; R60.0 Localized edema; R94.31 Abnormal electrocardiogram [ECG] [EKG]; Z82.49 Family history of ischemic heart disease and other diseases of the circulatory system; Z95.0 Presence of cardiac pacemaker
CPT/HCPCS: 93306

== ENCOUNTER 2023-04-09 19:50 | Emergency (ER) | payer MEDICARE, MEDICAID, SELFPAY ==
[2023-04-09] VITALS (7 sets, daily range): BP systolic 128–159; BP diastolic 79–95; PULSE 65–76; RESP 20; TEMP 36.8; O2SAT 93–97; BMI 40.3
--- NOTE | 2023-04-09 21:08 | XR_ITS ---
PROCEDURE INFORMATION: Exam: XR Chest Exam date and time: 04/09/2023 9:37 PM Age: 87 years old Clinical indication: Wheezing; Additional info: Lll wheezes TECHNIQUE: Imaging protocol: Radiologic exam of the chest. Views: 1 view. COMPARISON: CR (CHEST PA, CHEST, CHEST PA) 11/13/2018 3:01 PM FINDINGS: Lungs: Mild left mid lung atelectasis or scarring redemonstrated. Lungs are otherwise clear. Pleural spaces: Unremarkable. No pleural effusion. No pneumothorax. Heart/Mediastinum: Mild cardiac enlargement similar to previous. Stable position of single lead pacer. Vascularity appears normal. Bones/joints: Unremarkable. IMPRESSION: Stable chest x-ray with no acute disease.
--- NOTE | 2023-04-09 21:08 | HMH.EDGENADL ---
Discharge Plan Disposition Patient Disposition: Home, Self-Care Prescriptions Prescriptions: New cefdinir 300 mg capsule 300 mg PO BID 7 Days Qty: 14 0RF No Action multivitamin Tablet 1 tab PO DAILY acetaminophen 325 mg tablet 325 mg PO QID PRN (Reason: Pain (Scale Score 4-6)) venlafaxine 75 mg tablet 75 mg PO DAILY mirtazapine 15 mg tablet 15 mg PO DAILY lactulose 10 gram/15 mL (15 mL) solution 15 ml PO DAILY Eliquis 5 mg tablet 5 mg PO BID ropinirole 1 mg tablet 1 mg PO HS Referrals Follow up/Referrals: Ashvin Connor MD [Primary Care Provider] - See instructions Activity Restrictions/Add. Instructions Additional Instructions/Restrictions: Antibiotic twice daily for 7 days call your family doctor to establish care for this visit to the emergency department and schedule follow-up within 48 hours to ensure improvement. If you have any worsening of your condition or any other concerning signs or symptoms, return to the emergency department or your primary care doctor for further evaluation. Clinical Impressions Clinical Impression: Pneumonia Qualifiers: Pneumonia type: due to unspecified organism Laterality: left Lung location: lower lobe of lung Qualified Code(s): J18.9 - Pneumonia, unspecified organism Discharge ED Provider: Rey Whatley General Adult HPI General Chief complaint: Upper Respiratory Infection Stated complaint: low O2 Time Seen by Provider: 04/09/23 19:51 Mode of Arrival: EMS Source of Information: Patient Limitations: No Limitations Description of Symptoms (Recalled from ER Triage Doc. by RN): NH states that patient difficult to arrouse. Patient states that she is tired because they will not allow her to sleep and keep her up too much. Patient confused at baseline, Alert and oriented to self at this time. Patient has a nonproductive cough. History of Present Illness HPI narrative: 87-year-old female with history of hypertension, hyperlipidemia, dementia presenting with concern for low oxygen. Patient not on oxygen at home. Per EMS, patient's oxygen was in the high 70s when checked at [facility]. Patient denies any symptoms at this time, but also difficult to discern history secondary to dementia and poor historian. Related Data Home Medications Medication Instructions Recorded Confirmed acetaminophen 325 mg tablet 325 mg PO QID PRN Pain (Scale 03/19/23 04/09/23 Score 4-6) apixaban 5 mg tablet (Eliquis) 5 mg PO BID 03/19/23 04/09/23 lactulose 10 gram/15 mL (15 mL) 15 ml PO DAILY 03/19/23 04/09/23 oral solution mirtazapine 15 mg tablet 15 mg PO DAILY 03/19/23 04/09/23 multivitamin 1 tab PO DAILY 03/19/23 04/09/23 venlafaxine 75 mg tablet 75 mg PO DAILY 03/19/23 04/09/23 ropinirole 1 mg tablet 1 mg PO HS 04/09/23 04/09/23 Previous Rx's Medication Instructions Recorded cefdinir 300 mg capsule 300 mg PO BID 7 days #14 caps 04/09/23 Allergies Allergy/AdvReac Type Severity Reaction Status Date / Time erythromycin base Allergy Mild Verified 03/19/23 14:03 [ERYTHROMYCIN BASE] Macrolide Antibiotics Allergy Mild Verified 03/19/23 14:03 [MACROLIDE ANTIBIOTICS] Penicillins Allergy Mild Verified 03/19/23 14:03 tetracycline [TETRACYCLINE] Allergy Mild Verified 03/19/23 14:03 [facility] Disclaimer: The information contained in this section may have been updated after the patient was seen, as this information can be updated by other users. Medical History Abnormal EKG Atrial fibrillation Cardiac pacemaker in situ Family history of heart disease Social History Smoking Status: Never smoker alcohol intake: never substance use type: denies use current occupational status: employed Travel in the last 8 weeks: None housing: apartment caffeine: No ROS Obtained: Yes unobtainable due to ment
[2023-04-09 21:23] LABS: VBG Base Excess 2.3 mmol/L (-2.4-2.3); VBG HCO3 27.5 mmol/L (23-30); VBG Oxygen Saturation 82.8 % (50-70); VBG PCO2 47.9 mmol/L (35-51); VBG PH 7.38 mmol/L (7.31-7.41); VBG PO2 48.7 mmol/L (28-40)
[2023-04-09 21:25] LABS: Basophils # 0.1 K/mm3 (0-0.2); Basophils % 0.5 % (0.1-2.0); Eosinophils # 0.8 K/mm3 (0.0-0.4); Eosinophils % 5.1 % (0.1-12.0); Hematocrit 46.2 % (37.0-47.0); Hemoglobin 14.6 g/dL (12.2-16.2); Lymphocytes # 1.8 K/mm3 (0.7-4.5); Lymphocytes % 11.6 % (10-50); Mean Corpuscular HGB Conc 31.6 g/dL (31.8-35.4); Mean Corpuscular Hemoglobin 30.8 pg (27.0-31.2); Mean Corpuscular Volume 97.3 fl (81-99); Mean Platelet Volume 7.3 fl (7.4-10.4); Monocytes # 0.7 K/mm3 (0.1-1.0); Monocytes % 4.8 % (1.7-9.3); Neutrophils # 11.8 K/mm3 (1.8-7.8); Platelet Count 471 K/mm3 (142-424); Red Blood Count 4.75 M/mm3 (4.20-5.40); Red Cell Distribution Width 13.2 % (11.5-17.5); White Blood Count 15.2 K/mm3 (4.8-10.8)
[2023-04-09 21:27] LABS: MANUAL DIFFERENTIAL MANUAL DIFFERENTIAL (MANUAL DIFF)
[2023-04-09 21:33] LABS: Alanine Aminotransferase 38 U/L (12-78); Albumin Level 3.6 g/dl (3.5-5.0); Albumin/Globulin Ratio 0.9 (1.1-1.8); Alkaline Phosphatase 101 U/L (38-126); Anion Gap 6.3 mEq/L (5-15); Aspartate Amino Transferase 35 U/L (14-36); Blood Urea Nitrogen 15 mg/dl (7-17); Calcium 10.2 mg/dl (8.4-10.2); Carbon Dioxide 34 mmol/L (22.0-30.0); Chloride 100 mmol/L (98-107); Creatinine Clearance Estimated 70 mL/min (50-200); Estimated Glomerular Filt Rate 94 ml/min (>60); GFR (African American) 114 ML/MIN (>60); Globulin 4.1 g/dL (1.3-3.2); Glucose 125 mg/dl (74-100); Potassium 4.3 mmoL/L (3.5-5.1); Sodium 136 mmol/L (136-145); Total Protein,Serum 7.7 g/dl (6.3-8.2)
[2023-04-09 21:46] LABS: NT Pro Brain Natriuretic Pep. 414 pg/mL (0-450)
[2023-04-09 21:47] LABS: Bilirubin,Total 0.1 mg/dl (0.2-1.3)
[2023-04-09 21:51] LABS: Eosinophils % 2 % (0-3); Lymphocytes % 13 % (10-50); Monocytes % 1 % (2-9); Neutrophils % 84 % (42-76); Platelet Estimate Slight Increase; RBC Morphology Normal; Total Cells Counted 100
[2023-04-09 22:26] LABS: Microscopic, Urine URINE MICROSCOPIC (MICROSCOPIC)
[2023-04-09 22:37] LABS: Appearance,Urine CLEAR (Clear); Bilirubin,Urine Negative (Negative); Blood, Urine Negative (Negative); Color,Urine YELLOW (Yellow); Glucose,Urine (UA) Negative (Negative); Ketones,Urine Negative (Negative); Leukocyte Esterase,Urine Negative (Negative); Nitrate,Urine Negative (Negative); Protein,Urine Negative (Negative); Urobilinogen,Urine 0.2 EU/dl (0.2)
--- NOTE | 2023-04-09 23:00 | PC.NURSE ---
Report called to [facility] at [place]; Updated on wait time for EMS to transport back. ETA 2 hours
--- NOTE | 2023-04-10 00:05 | PC.NURSE ---
EMS here for transport back to [place]
[2023-04-10 00:09] VITALS: BP 129/95; PULSE 75; RESP 18; TEMP 36.8; O2SAT 96
== END 2023-04-10 00:11 | disposition home or self-care (01) ==
PROVIDERS: Emergency Provider Emergency Medicine; PCP Emergency Medicine
DX: R09.02 Hypoxemia (principal); J18.9 Pneumonia, unspecified organism; D72.829 Elevated white blood cell count, unspecified; I10 Essential (primary) hypertension; E78.5 Hyperlipidemia, unspecified; F03.90 Unspecified dementia, unspecified severity, without behavioral disturbance, psychotic disturbance, mood disturbance, and anxiety; Z95.0 Presence of cardiac pacemaker
CPT/HCPCS: 71045; 80053; 81001; 82803; 83880; 85007; 85025; 87040; 96365; 99284; J0696

== ENCOUNTER 2023-08-07 22:59 | Outpatient (CLI) | payer MEDICARE, MEDICAID, SELFPAY ==
[2023-08-07 23:22] LABS: Basophils # 0.1 K/mm3 (0-0.2); Basophils % 0.6 % (0.1-2.0); Eosinophils # 0.9 K/mm3 (0.0-0.4); Eosinophils % 5.7 % (0.1-12.0); Hemoglobin 14.2 g/dL (12.2-16.2); Lymphocytes # 2.5 K/mm3 (0.7-4.5); Lymphocytes % 16.8 % (10-50); Mean Corpuscular HGB Conc 31.6 g/dL (31.8-35.4); Mean Corpuscular Hemoglobin 31.6 pg (27.0-31.2); Mean Corpuscular Volume 99.8 fl (81-99); Mean Platelet Volume 7.6 fl (7.4-10.4); Monocytes % 6.7 % (1.7-9.3); Neutrophils # 10.4 K/mm3 (1.8-7.8); Neutrophils % 70.2 % (37.0-80.0); Platelet Count 418 K/mm3 (142-424); Red Blood Count 4.51 M/mm3 (4.20-5.40); Red Cell Distribution Width 13.4 % (11.5-17.5); White Blood Count 14.8 K/mm3 (4.8-10.8)
[2023-08-07 23:36] LABS: Alanine Aminotransferase 36 U/L (12-78); Albumin Level 3.6 g/dl (3.5-5.0); Albumin/Globulin Ratio 1.2 (1.1-1.8); Alkaline Phosphatase 96 U/L (38-126); Anion Gap 6.8 mEq/L (5-15); Aspartate Amino Transferase 34 U/L (14-36); Blood Urea Nitrogen 16 mg/dl (7-17); Calcium 10.5 mg/dl (8.4-10.2); Carbon Dioxide 31 mmol/L (22.0-30.0); Chloride 100 mmol/L (98-107); Estimated Glomerular Filt Rate 94 ml/min (>60); GFR (African American) 114 ML/MIN (>60); Globulin 2.9 g/dL (1.3-3.2); Glucose 108 mg/dl (74-100); Potassium 4.8 mmoL/L (3.5-5.1); Sodium 133 mmol/L (136-145); Total Protein,Serum 6.5 g/dl (6.3-8.2)
[2023-08-07 23:48] LABS: Bilirubin,Total 0.1 mg/dl (0.2-1.3)
[2023-08-08 02:25] LABS: NT Pro Brain Natriuretic Pep. 414 pg/mL (0-450)
== END 2023-08-07 23:59 ==
LOC: LAB.DROPOF 23:01
PROVIDERS: PCP Internal Medicine; Visit Provider Internal Medicine
DX: R06.09 Other forms of dyspnea (principal); I10 Essential (primary) hypertension; D72.828 Other elevated white blood cell count
CPT/HCPCS: 80053; 83880; 85025

== ENCOUNTER 2023-11-13 09:06 | Day surgery (SDC) | payer MEDICARE, MEDICAID, SELFPAY ==
[2023-11-08 14:20] VITALS: BMI 30.7
[2023-11-13] VITALS (8 sets, daily range): BP systolic 146–164; BP diastolic 81–94; PULSE 63–75; RESP 16–18; TEMP 36.4–36.6; O2SAT 4–95
--- NOTE | 2023-11-13 10:11 | SUR.PREOP ---
pt is confused. Pt able to state name and .
[2023-11-13] MEDS: TIMOLOL 0.5% OPTH SOLN 5ML OP ×2 (10:15→11:17)
[2023-11-13] MEDS: TETRACAINE 0.5% OPTH SOL 15ML OP (10:15)
[2023-11-13] MEDS: TOBRAMYCIN/DEX OPTH SUSP 2.5ML OP ×2 (10:16→11:18)
[2023-11-13] MEDS: MIDAZOLAM 2MG/2ML VIAL 1 MG IV (11:11)
[2023-11-13] MEDS: SODIUM CHLORIDE 0.9% 10ML FLUSH SYRINGE 10 ML IV (11:17)
[2023-11-13] MEDS: LIDOCAINE 1% PF 2ML AMPULE 2 ML IJ (11:18)
--- NOTE | 2023-11-13 11:41 | SUR.OPER ---
1056- patient into room with circulating nurse at this time. Patient alert but not oriented, this is paitents baseline. Obtained all vitals signs except BP. Patient was not tolerating her BP being taken. 1106- Patient was able to tolerate BP being taken after therapeutic communication given by Dr Rodriguez. Verbal orders given to obtain 1 more BP prior to incision and to take no more after the procedure starts. another verbal order given to pull 25mg of Ketamine and have on standby in the patient becomes anxious during procedure. All Verbal orders repeated back and correct. 25mg of ketamine pulled and on standby. 1111- 1 mg of versed given per AUG. BP taken prior to incision. See sedation vitals for all vitals obtained. all other vitals charted every 5 minutes as directed by Dr Rodriguez. 1130- Patient taken back to Post op by sedation RN. Patient arrived in Post op and report given to Cristina Del Rosario RN.
--- NOTE | 2023-11-13 12:33 | P.PCN_ITS ---
[facility] Procedure Note Date: 11/13/23 Time: 12:33 Procedure Note:: Preoperative Diagnosis: Cataract combined NS Cortical Complex [Left] Eye Postop diagnosis: same Operation: Microscopic phacoemulsification with intraocular lens implant [Left] Eye Specimen: None Blood Loss: None The patient was examined in the office with a complaint of poor vision in the [right] eye. The patient reports that this interferes with ADLs such as reading, watching TV and/or driving or the vision is like looking through a foggy haze and is very troubling. The patient was examined and found to have a visually significant cataract with best corrected vision of [20/400] by refraction and/or glare testing. Treatment options, risks and benefits were explained and the patient elected to have cataract surgery in an attempt to improve their vision. The patient had the eye anesthetized with topical tetracaine, the eye ways prepped and draped in the usual fashion for cataract surgery. A paracentesis and a temporal keratotomy were made. 0.2cc of 1% lidocaine PF was placed into the anterior chamber. And aqueous/viscoelastic exchange was done and a 360 degree capsulorexis was performed. Through hydrodissection and delineation with BSS on a cannula was done. The lens nucleus was phecoemulsified with CDE of [10.28]. Residual cortical material was removed using automated I&A The capsular bag was deepened with viscoelastica and a PCIOL was placed in the capsular bag with good centration and stability. Residual viscoelastic was removed using automated I&A. The keratotomy incision was hydrated with BSS on a cannula. The wound were checked and found to be water tight. IOP was checked digitally and adjusted as needed so as not to be too high. 1 drop of timolol 0.5%, ofloxacin, prednisolone acetate and ketorolac was instilled and eye shield taped over the eye. The patient was taken to recovery in good condition and will be seen postoperatively.
== END 2023-11-13 12:00 | disposition home or self-care (01) ==
PROVIDERS: PCP Internal Medicine; Visit Provider Ophthalmology
PROC: (CPT 66984; principal; 2023-11-13 11:30)
DX: H53.8 Other visual disturbances (principal); H25.12 Age-related nuclear cataract, left eye
CPT/HCPCS: 66984; V2632

== ENCOUNTER 2023-11-27 09:05 | Day surgery (SDC) | payer MEDICARE, MEDICAID, SELFPAY ==
[2023-11-27 10:25] VITALS: BP 160/87; PULSE 73; RESP 18; TEMP 36.6; O2SAT 94
[2023-11-27] MEDS: CYCLOPENTOLATE 2% OPHTH SOLN 2ML BOTTLE OP ×3 (10:32→10:33)
[2023-11-27] MEDS: TETRACAINE 0.5% OPTH SOL 15ML OP ×3 (10:32→10:33)
[2023-11-27] MEDS: PHENYLEPHRINE 2.5% OPHTH SOLN 2ML OP ×3 (10:32→10:33)
[2023-11-27 10:34] VITALS: BMI 31.1
[2023-11-27 11:31] VITALS: BP 107/55; PULSE 70; RESP 14; TEMP 36.6; O2SAT 92
[2023-11-27] MEDS: MIDAZOLAM 2MG/2ML VIAL 1 MG IV (11:31)
[2023-11-27 11:36] VITALS: BP 110/60; PULSE 72; RESP 14; TEMP 36.6; O2SAT 92
[2023-11-27 11:41] VITALS: PULSE 60; RESP 14; TEMP 36.6; O2SAT 93
[2023-11-27 11:46] VITALS: PULSE 62; RESP 14; TEMP 36.6; O2SAT 92
[2023-11-27 11:55] VITALS: BP 124/84; PULSE 70; RESP 18; TEMP 36.6; O2SAT 91
[2023-11-27] MEDS: TIMOLOL 0.5% OPTH SOLN 5ML OP (12:01)
[2023-11-27] MEDS: TOBRAMYCIN/DEX OPTH SUSP 2.5ML OP (12:01)
[2023-11-27] MEDS: LIDOCAINE 1% PF 2ML AMPULE 2 ML IJ (12:01)
[2023-11-27] MEDS: SODIUM CHLORIDE 0.9% 10ML FLUSH SYRINGE 10 ML IV (12:02)
--- NOTE | 2023-12-11 13:21 | [facility].PROCNOTE ---
[facility] [place] Procedure Note Date: 11/27/23 Time: 13:21 Procedure Note:: Preoperative Diagnosis: Cataract combined NS Cortical Complex [Right] Eye Postop diagnosis: same Operation: Microscopic phacoemulsification with intraocular lens implant [Right] Eye Specimen: None Blood Loss: None The patient was examined in the office with a complaint of poor vision in the [right] eye. The patient reports that this interferes with ADLs such as reading, watching TV and/or driving or the vision is like looking through a foggy haze and is very troubling. The patient was examined and found to have a visually significant cataract with best corrected vision of [20/400] by refraction and/or glare testing. Treatment options, risks and benefits were explained and the patient elected to have cataract surgery in an attempt to improve their vision. The patient had the eye anesthetized with topical tetracaine, the eye ways prepped and draped in the usual fashion for cataract surgery. A paracentesis and a temporal keratotomy were made. 0.2cc of 1% lidocaine PF was placed into the anterior chamber. And aqueous/viscoelastic exchange was done and a 360 degree capsulorexis was performed. Through hydrodissection and delineation with BSS on a cannula was done. The lens nucleus was phecoemulsified with CDE of [8.48]. Residual cortical material was removed using automated I&A The capsular bag was deepened with viscoelastica and a PCIOL was placed in the capsular bag with good centration and stability. Residual viscoelastic was removed using automated I&A. The keratotomy incision was hydrated with BSS on a cannula. The wound were checked and found to be water tight. IOP was checked digitally and adjusted as needed so as not to be too high. 1 drop of timolol 0.5%, ofloxacin, prednisolone acetate and ketorolac was instilled and eye shield taped over the eye. The patient was taken to recovery in good condition and will be seen postoperatively.
== END 2023-11-27 12:10 | disposition home or self-care (01) ==
PROVIDERS: PCP Internal Medicine; Visit Provider Ophthalmology
PROC: (CPT 66984; principal; 2023-11-27 11:30)
DX: H25.11 Age-related nuclear cataract, right eye (principal); H53.8 Other visual disturbances
CPT/HCPCS: 66984; V2632